=== PATIENT | male | born 1945 ===

== ENCOUNTER 2021-07-10 17:25 | Inpatient (IN) | payer MEDICAID, MEDICARE ==
[~2021-07-10] VITALS: Ht 170.2 cm; Wt 83.1 kg
--- NOTE | 2021-07-10 17:43 | NUR ---
DR. MERRY BEE (NEUROLOGIST) ASSESSING VIA [place]
[2021-07-10 17:44] LABS: BASOPHILS % (AUTO) 1 % (0-1); EOSINOPHILS % (AUTO) 3 % (1-7); LYMPHOCYTES % (AUTO) 27 % (22-44); MEAN CORPUSCULAR HEMOGLOBIN 29.6 pg (27.5-34.5); MEAN CORPUSCULAR HGB CONC 33.6 g/dL (33.2-36.2); MEAN PLATELET VOLUME 8.3 fL (7.4-10.4); MONOCYTES % (AUTO) 9 % (2-9); NEUTROPHILS % (AUTO) 61 % (42-75); PLATELET COUNT 269 x10^3/uL (130-400); RED CELL DISTRIBUTION WIDTH 14.5 % (9.4-14.8)
[2021-07-10 17:49] LABS: ALANINE AMINOTRANSFERASE 20 U/L (12-78); ALBUMIN 3.6 g/dL (3.4-5.0); ANION GAP 5 mmol/L (5-15); CALCIUM 8.7 mg/dL (8.5-10.1); CHLORIDE 110 mmol/L (98-107)
[2021-07-10 17:50] LABS: INTERNATIONAL NORMALIZED RATIO 0.97 (0.93-1.1); PROTHROMBIN TIME 10.4 Seconds (9.6-11.5)
[2021-07-10] MEDS ORDERED: OMNIPAQUE 350 MG/ML, 100ML BOTTLE ONE (17:51)
[2021-07-10 17:52] LABS: ALKALINE PHOSPHATASE 56 U/L (45-117); BILIRUBIN,TOTAL 0.3 mg/dL (0.2-1.0); TOTAL PROTEIN 6.8 g/dL (6.4-8.2); TROPONIN I < 0.015 ng/mL (0.000-0.045)
[2021-07-10] MEDS ORDERED: hydrALAzine 20 MG/ML, 1ML IV ONE (18:00)
[2021-07-10] MEDS ORDERED: ASPIRIN 81 MG TABLET CHEW ONE (18:13)
[2021-07-10] MEDS ORDERED: PROPARACAINE OPHTH 0.5%, 15ML ONE (18:13)
--- NOTE | 2021-07-10 18:15 | NUR ---
PATIENT COMPLAINING OF SIGNIFICANT LEFT EYE PRESSURE (HX OF GLAUCOMA)- DR. BELTRÁN AT BEDSIDE WITH ABDULKADIR-PEN FOR EXAM: PRESSUE OF 13
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
--- NOTE | 2021-07-10 18:23 | NUR ---
IOP TO RIGHT EYE 15
--- NOTE | 2021-07-10 18:24 | NUR ---
DR. CRAIN (HOSPITALIST) TO BEDSIDE FOR ASSESSMENT
[2021-07-10] MEDS ORDERED: ASPIRIN 81 MG TABLET CHEW PO ONE ×2 (18:30→20:00)
[2021-07-10] MEDS ORDERED: PROPARACAINE OPHTH 0.5%, 15ML EACHEYE ONE (18:30)
[2021-07-10] MEDS ORDERED: OXYcodone 5 MG/5 ML ORAL.SOL UDC PO PRN (19:00)
[2021-07-10] MEDS ORDERED: ASPIRIN 325 MG TABLET PO ONE (19:00)
[2021-07-10] MEDS ORDERED: LABETALOL 5MG/ML, 20ML IV PRN (19:00)
[2021-07-10] MEDS ORDERED: ENALAPRILAT 1.25 MG/ML, 2ML IV PRN (19:00)
[2021-07-10] MEDS ORDERED: ONDANSETRON 2MG/ML, 2ML IVPush PRN (19:00)
[2021-07-10] MEDS ORDERED: ACETAMINOPHEN 650 MG/20.3 ML UDC PO PRN (19:00)
[2021-07-10] MEDS: TIMOLOL OPHTH 0.5%, 5ML EACHEYE SCH (19:00)
[2021-07-10] MEDS ORDERED: CLOPIDOGREL 300 MG TABLET PO ONE (19:00)
[2021-07-10] MEDS ORDERED: POLYETHYLENE GLYCOL 17 GM PACKET PO PRN (19:00)
--- NOTE | 2021-07-10 19:04 | NUR ---
REPORT TO LYRIC GARZA
--- NOTE | 2021-07-10 19:24 | NUR ---
PLSVIX REQUESTED FROM PHARMACY
[2021-07-10] MEDS ORDERED: OXYcodone IR 5MG TABLET ONE (20:47)
[2021-07-10] MEDS ORDERED: OXYcodone IR 5MG TABLET PO PRN (21:00)
[2021-07-11] VITALS (8 sets, daily range): BP systolic 145–173; BP diastolic 75–90
[2021-07-11] MEDS ORDERED: IBUP100O32 PO (00:09)
[2021-07-11] MEDS ORDERED: TIMO5TAB OP (00:09)
[2021-07-11] MEDS ORDERED: ACET325T14 PO (00:09)
[2021-07-11 05:31] LABS: BASOPHILS % (AUTO) 0 % (0-1); EOSINOPHILS % (AUTO) 1 % (1-7); LYMPHOCYTES % (AUTO) 18 % (22-44); MEAN CORPUSCULAR HGB CONC 34.2 g/dL (33.2-36.2); MEAN PLATELET VOLUME 8.1 fL (7.4-10.4); MONOCYTES % (AUTO) 7 % (2-9); NEUTROPHILS % (AUTO) 74 % (42-75); PLATELET COUNT 234 x10^3/uL (130-400); RED CELL DISTRIBUTION WIDTH 14.3 % (9.4-14.8)
[2021-07-11 05:36] LABS: CHLORIDE 107 mmol/L (98-107)
[2021-07-11 05:47] LABS: ALANINE AMINOTRANSFERASE 18 U/L (12-78); ALBUMIN 3.3 g/dL (3.4-5.0); ALKALINE PHOSPHATASE 54 U/L (45-117); ANION GAP 4 mmol/L (5-15); BILIRUBIN,TOTAL 0.6 mg/dL (0.2-1.0); CALCIUM 8.7 mg/dL (8.5-10.1); CHOL/HDL RATIO 3.4; CHOLESTEROL, TOTAL 174 mg/dL (140-239); HDL CHOL % 29 % (26-37); HDL CHOLESTEROL (DIRECT) 51 mg/dL (40-60); LDL CHOLESTEROL,CALCULATED 108 mg/dL (54-169); LDL/HDL RATIO 2.1 (0.5-3.0); TOTAL PROTEIN 6.1 g/dL (6.4-8.2); TRIGLYCERIDES 73 mg/dL (50-200); VLDL CHOLESTEROL 15 mg/dL (0-25)
[2021-07-11] MEDS: ASPIRIN 81 MG TABLET CHEW PO/NG SCH (08:42)
[2021-07-11] MEDS ORDERED: ASPIRIN 81 MG TABLET CHEW PO SCH (09:00)
[2021-07-11] MEDS: TIMOLOL OPHTH 0.5%, 5ML EACHEYE SCH (09:00)
[2021-07-11] MEDS ORDERED: CLOPIDOGREL 75 MG TABLET PO SCH (09:00)
[2021-07-11 10:25] LABS: C-REACTIVE PROTEIN, QUANT 0.17 mg/dL (0.02-0.49)
--- NOTE | 2021-07-11 11:06 | NUR ---
CHOPPED/NECTAR - BUSINESS PROCESS MANAGER PLACED SWALLOW PRECAUTION SIGN AT HOB Addendum: 07/11/21 at 1107 by Janice STEWART Amended: Links added.
[2021-07-11] MEDS: AMLODIPINE 2.5 MG TABLET PO SCH (11:59)
[2021-07-11] MEDS ORDERED: GADOTERATE 10 MMOL/20ML SYR ONE (13:54)
[2021-07-11] MEDS ORDERED: HEPARIN wt. based STROKE protocol MC PRN (16:00)
[2021-07-11] MEDS: HEPARIN 25,000 UNITS/250ML PMX 250 ML IV PRN (17:53)
[2021-07-11] MEDS: LACTATED RINGERS 1,000 ML IV SCH (18:32)
[2021-07-11] MEDS: SIMVASTATIN 40 MG TABLET PO SCH (19:47)
[2021-07-12] VITALS (7 sets, daily range): BP systolic 136–178; BP diastolic 83–96
[2021-07-12] MEDS: LACTATED RINGERS 1,000 ML IV SCH ×2 (04:32→17:57)
[2021-07-12 08:03] LABS: HCT (SEDRATE) 51.2 % (39.2-51.8)
[2021-07-12] MEDS: AMLODIPINE 2.5 MG TABLET PO SCH (09:00)
[2021-07-12] MEDS: TIMOLOL OPHTH 0.5%, 5ML EACHEYE SCH (09:00)
[2021-07-12] MEDS: ASPIRIN 81 MG TABLET CHEW PO/NG SCH (09:00)
[2021-07-12] MEDS: SIMVASTATIN 40 MG TABLET PO SCH (19:05)
[2021-07-12] MEDS ORDERED: BISACODYL 10 MG SUPP PR ONE (21:30)
[2021-07-12] MEDS: HEPARIN 25,000 UNITS/250ML PMX 250 ML IV PRN (22:06)
[2021-07-13 00:07] VITALS: BP 145/81
[2021-07-13 00:17] VITALS: BP 155/80
[2021-07-13 04:40] VITALS: BP 171/80
[2021-07-13 07:30] VITALS: BP 164/84
[2021-07-13] MEDS: LACTATED RINGERS 1,000 ML IV SCH (07:30)
[2021-07-13] MEDS: ASPIRIN 81 MG TABLET CHEW PO/NG SCH (09:00)
[2021-07-13] MEDS: TIMOLOL OPHTH 0.5%, 5ML EACHEYE SCH (09:00)
[2021-07-13] MEDS: AMLODIPINE 2.5 MG TABLET PO SCH (09:00)
[2021-07-13] MEDS ORDERED: ASPI-963 PO/NG ×2 (13:34)
[2021-07-13] MEDS ORDERED: SIMV40TA20 PO (13:34)
[2021-07-13] MEDS ORDERED: AMLO2.5T5 PO (13:34)
[2021-07-13] MEDS ORDERED: APIX5TAB PO (13:36)
== END 2021-07-13 18:26 | disposition home health service (06) | DRG 65 ==
LOC: ED 17:30 → EDIP 18:02 → ED 18:19 → 4EST 20:59
PROVIDERS: ADMIT Internal Medicine; ATTEND Family Medicine
DX: I63.9 Cerebral infarction, unspecified (principal); G46.0 Middle cerebral artery syndrome; I48.92 Unspecified atrial flutter; I48.91 Unspecified atrial fibrillation; Z79.01 Long term (current) use of anticoagulants; I49.5 Sick sinus syndrome; E78.5 Hyperlipidemia, unspecified; G47.33 Obstructive sleep apnea (adult) (pediatric); I11.9 Hypertensive heart disease without heart failure; I16.0 Hypertensive urgency; I44.0 Atrioventricular block, first degree; M19.90 Unspecified osteoarthritis, unspecified site; I65.02 Occlusion and stenosis of left vertebral artery; I65.29 Occlusion and stenosis of unspecified carotid artery; R47.81 Slurred speech; G72.9 Myopathy, unspecified; K21.9 Gastro-esophageal reflux disease without esophagitis; R47.1 Dysarthria and anarthria; R13.10 Dysphagia, unspecified; R29.810 Facial weakness; Z79.82 Long term (current) use of aspirin; Z86.73 Personal history of transient ischemic attack (TIA), and cerebral infarction without residual deficits; Z87.892 Personal history of anaphylaxis; Z91.19 Patient's noncompliance with other medical treatment and regimen; Z79.899 Other long term (current) drug therapy; Z91.013 Allergy to seafood; Z88.8 Allergy status to other drugs, medicaments and biological substances
CPT/HCPCS: 36415; 70450; 70496; 70498; 70553; 71045; 74230; 80047; 80053; 80061; 82607; 82962; 83036; 84443; 84484; 85025; 85520; 85610; 85651; 85730; 86140; 86592; 93005; 93306; 93880; 99285; G0378; Q9967; 92522-GN; A9575; J7120